=== PATIENT | female | born 1965 | race Two or more races ===

== ENCOUNTER 2019-12-05 07:07 | Day surgery (SDC) | payer OTHER ==
[2019-12-05] MEDS ORDERED: DOXYCYCLINE HY100 MG PO (15:08)
[2019-12-05] MEDS ORDERED: NAPROXEN500 MG PO (15:09)
== END 2019-12-05 19:35 | disposition home or self-care (01) ==
LOC: CIR.AMB 07:07
PROVIDERS: ATTEND Obstetrics & Gynecology
DX: D25.0 Submucous leiomyoma of uterus (principal); N84.0 Polyp of corpus uteri; Z20.828 Contact with and (suspected) exposure to other viral communicable diseases